=== PATIENT | female | born 1990 | race Caucasian/White ===

== ENCOUNTER → 2023-04-29 | Outpatient (CLI) | payer MEDICAID, SELFPAY | END | disposition home or self-care (01) | LOC: LABSPEC 15:03 | PROVIDERS: Referring Provider Registered Nurse; Visit Provider Registered Nurse | DX: Z34.90 Encounter for supervision of normal pregnancy, unspecified, unspecified trimester (principal) | CPT/HCPCS: 87086 ==

== ENCOUNTER → 2023-05-28 | Outpatient (CLI) | payer MEDICAID, SELFPAY ==
--- NOTE | 2023-05-28 09:56 | US_ITS ---
STUDY: SECOND AND THIRD TRIMESTER OBSTETRICAL ULTRASOUND REASON FOR EXAM: Female, 32 years old anatomy scan 34 WEEK 6 DAYS LMP: 09/26/2022 TECHNIQUE: Transabdominal TECHNICAL QUALITY: Adequate. PRIOR ULTRASOUND: None. FINDINGS: There is a single intrauterine fetus. The fetus is in a cephalic presentation. There is demonstrated cardiac activity with a heart rate of 145 bpm. There is a normal amniotic fluid volume. The largest amniotic fluid pocket measures 5.1 cm. The amniotic fluid index (MARGARET) is 14.8 cm. The placenta is anterior in location and is not low lying. There are Grade 1 placental changes. Suspect marginal or velamentous cord insertion on the placenta. The cervix measures 4.0 cm in length. The bilateral adnexal regions are normal. BIOMETRY: BPD: 8.4 cm: 34 weeks, 0 days HC: 30.8 cm: 34 weeks, 3 days AC: 31.7 cm: 35 weeks, 4 days FL: 6.5 cm: 33 weeks, 4 days CI: 79.02 FL/BPD: 77.29 FL/HC: 21.16 FL/AC: 20.60 HC/AC: 0.97 age by current US: 34 weeks, 2 days. CAM by current US: 07/07/2023. Estimated weight: 2543 grams, +/- 381 grams, 47 %. age by prior US: weeks, days. CAM by prior US: . Age by LMP: 34 weeks, 6 days. CAM by LMP: 07/03/2023. ANATOMY: Gender: Female Cranium: Normal lateral ventricles. Normal choroid plexus. Normal cerebellum. Normal cisterna magna. Normal face, nose and lips. Chest: Normal 4-chamber heart. Abdomen/Pelvis: Normal diaphragm. Normal stomach. Normal abdominal wall. Normal cord insertion. Normal 3 vessel cord. Normal kidneys. Normal bladder. Spine: Normal cervical spine. Normal thoracic spine. Normal lumbar spine. Normal sacrum. Extremities: Normal bilateral upper extremities. Normal bilateral lower extremities. US/OB Anatomy Scan IMPRESSION: 1. Living intrauterine of 34 weeks 2 days as described above. 2. Suspect marginal or velamentous cord insertion on the placenta. Maternal medicine consult may be useful. Electronically Signed: Omari Cook MD at 22:48 EST ,
== END | disposition home or self-care (01) ==
LOC: US 09:56
PROVIDERS: Referring Provider Registered Nurse; Visit Provider Registered Nurse
DX: Z34.90 Encounter for supervision of normal pregnancy, unspecified, unspecified trimester (principal)
CPT/HCPCS: 76805

== ENCOUNTER → 2023-06-07 | Outpatient (CLI) | payer MEDICAID, SELFPAY ==
[2023-06-07 11:28] LABS: Absolute Lymphocyte Count 1.68 X10^3/uL (0.83-4.51); Absolute Neutrophil Count 6.4 X10^3/uL (2.0-7.7); Basophil# 0.04 X10^3/uL; Basophil% 0.4 % (0-1); Eosinophils% 3.3 % (0-5); Hematocrit 35.8 % (37-47); Hemoglobin 12.1 g/dL (12.0-15.0); Lymphocyte # 1.68 X10^3/ul (0.83-4.51); Lymphocyte % 18.6 % (19-41); Mean Corp Hgb Conc 33.8 g/dL (32-36); Mean Corpuscular Hgb 30.4 pg (27.0-32.0); Mean Corpuscular Volume 89.9 fL (81-99); Mean Platelet Vol. 10.8 fl (6.2-12.0); Monocyte# 0.55 X10^3/uL; Monocyte% 6.1 % (0-10); NRBC Flagged by Analyzer 0 % (0-5); Platelet Count 217 K/mm3 (150-450); RBC Distribution Width SD 45.9 fl (35.1-43.9); Red Blood Count 3.98 M/mm3 (4.2-5.4)
[2023-06-07 11:34] LABS: Glucose Challenge Gest 1H 50g 120 mg/dL (70-140)
[2023-06-07 12:19] LABS: HIV - WCH Non-Reactive (Nonreactive); Hepatitis B Surface Antigen Non-Reactive (Nonreactive); Hepatitis C Antibody Non-Reactive (Nonreactive); Rubella IgG Reactive (Nonreactive); Syphilis Antibodies Non-reactive
== END | disposition home or self-care (01) ==
PROVIDERS: Referring Provider Registered Nurse; Visit Provider Registered Nurse
DX: Z34.90 Encounter for supervision of normal pregnancy, unspecified, unspecified trimester (principal)
CPT/HCPCS: 36415; 82950; 85025; 86703; 86762; 86780; 86803; 86850; 86900; 86901; 87340

== ENCOUNTER → 2023-06-11 | Outpatient (CLI) | payer MEDICAID, SELFPAY ==
[2023-06-11 14:32] LABS: Group B Strep DNA By PCR POSITIVE (Negative); Probe Check PASS
[2023-06-15 07:08] LABS: Chlamydia By Nucleic Acid AMP Negative (Negative); Gonococcus By Nucleic Acid AMP Negative (Negative)
== END | disposition home or self-care (01) ==
LOC: LABSPEC 12:28
PROVIDERS: Referring Provider Registered Nurse; Visit Provider Registered Nurse
DX: Z34.90 Encounter for supervision of normal pregnancy, unspecified, unspecified trimester (principal)
CPT/HCPCS: 87491; 87591; 87653

== ENCOUNTER → 2023-07-01 | Outpatient (CLI) | payer MEDICAID, SELFPAY ==
--- NOTE | 2023-07-01 16:38 | US_ITS ---
STUDY: SECOND AND THIRD TRIMESTER OBSTETRICAL ULTRASOUND - LIMITED REASON FOR EXAM: Female, 32 years old Uterine size date discrepancy LMP: 09/26/2022. PRIOR ULTRASOUND: None. TECHNIQUE: Transabdominal TECHNICAL QUALITY: Adequate. FINDINGS: There is a single intrauterine fetus. The fetus is in a cephalic presentation. There is demonstrated cardiac activity with a heart rate of 132 bpm. There is a normal amniotic fluid volume. The largest amniotic fluid pocket measures 3.8 x 3.5 cm. The amniotic fluid index (MARGARET) is 13.95 cm. The placenta is fundal and anterior with no evidence of previa. There are Grade 3 placental changes. The cervix is obscured. BIOMETRY: BPD: 8.7 cm: 35 weeks, 2 days HC: 32.51 cm: 36 weeks, 6 days AC: 34.82 cm: 38 weeks, 5 days FL: 7.17 cm: 36 weeks, 5 days Age by LMP: 39 weeks, 5 days. CAM by LMP: 07/03/2023. CAM by prior US: 07/07/2023. age by current US: 36 weeks, 0 days. CAM by current US: 07/29/2023. Estimated weight: 3290 grams, +/- 494 grams, 28 percentile. US/OB Limited With Biometrics IMPRESSION: Single intrauterine with ultrasound age of 36 weeks and 0 days and estimated date of delivery of 07/29/2023. Vertex presentation. Fundal placenta with no previa. Normal amniotic fluid. Normal cardiac activity. Electronically Signed: Brissa Matt MD at 18:39 EST ,
== END | disposition home or self-care (01) ==
PROVIDERS: Referring Provider Obstetrics & Gynecology; Visit Provider Obstetrics & Gynecology
DX: O26.849 Uterine size-date discrepancy, unspecified trimester (principal); Z3A.00 Weeks of gestation of pregnancy not specified
CPT/HCPCS: 76816

== ENCOUNTER 2023-07-06 17:45 | Inpatient (IN) | payer MEDICAID, SELFPAY ==
[2023-07-06 18:26] VITALS: TEMP 37.3
[2023-07-06 18:27] VITALS: BP 115/72; PULSE 78
[2023-07-06 18:37] VITALS: BMI 30.4
[2023-07-06] MEDS: Lactated Ringers 1,000 ML 50 ML IV (18:45)
[2023-07-06 18:59] LABS: Absolute Lymphocyte Count 2.11 X10^3/uL (0.83-4.51); Absolute Neutrophil Count 6.7 X10^3/uL (2.0-7.7); Basophil# 0.03 X10^3/uL; Basophil% 0.3 % (0-1); Eosinophil# 0.43 X10^3/uL; Eosinophils% 4.4 % (0-5); Hematocrit 35.8 % (37-47); Lymphocyte # 2.11 X10^3/ul (0.83-4.51); Lymphocyte % 21.4 % (19-41); Mean Corp Hgb Conc 33.5 g/dL (32-36); Mean Corpuscular Hgb 29.7 pg (27.0-32.0); Mean Corpuscular Volume 88.6 fL (81-99); Mean Platelet Vol. 11.9 fl (6.2-12.0); Monocyte% 6.1 % (0-10); NRBC Flagged by Analyzer 0 % (0-5); Neutrophil # 6.66 X10^3/uL (2.7-7.7); Neutrophil % 67.3 % (47-70); Platelet Count 238 K/mm3 (150-450); RBC Distribution Width CV 13.7 % (11.6-14.6); RBC Distribution Width SD 44.7 fl (35.1-43.9); Red Blood Count 4.04 M/mm3 (4.2-5.4); White Blood Count 9.9 K/mm3 (4.4-11.0)
[2023-07-06 19:00] VITALS: PULSE 80; O2SAT 97
[2023-07-06 19:34] LABS: Syphilis Antibodies Non-reactive
[2023-07-06] MEDS: LACTATED RINGERS 500 ML 999 ML IV (19:35)
[2023-07-06 19:48] VITALS: PULSE 83; O2SAT 97
[2023-07-06] MEDS: 0.9% Normal Saline Single 100 ML IV.SOLN. INTRA-UTER (20:37)
--- NOTE | 2023-07-06 21:00 | HP.PCM.OB_ITS ---
HPI - General General Date of Admission: 07/06/23 Date of Service: 07/06/23 HPI Narrative SUSSY SHANNON, is a 32 F 40.3 weeks who presents to L&D for induction of labor. She had decreased movement over the last 2 days and has a possible velamentous cord insertion. Maternal Data Information CAM Calculator Estimated Delivery Date Method Current WG Current Estimate 07/03/23 LMP (Certain) 40w 3d Final CAM: 07/03/23 Final CAM Source: US >20 weeks Gestational age: 40.3 weeks PFSH [facility] Medical History (Updated 07/06/23 @ 21:07 by Lizeth Rebolledo CNM) Back pain HPV (human papilloma virus) infection Migraine headache Home Medications magnesium 200 mg tablet 400 mg PO DAILY cramps 07/06/23 [History Last Taken 07/06/23] milk thistle seed ox-cfquqscmhe-njndfxxwv-turmeri 250 mg-250 mg tablet (Liver Complex) 1 tab PO DAILY anemia 07/06/23 [History Last Taken 07/06/23] omega 3 350 mg-dha 235 mg-epa 90 mg-fish oil 597 mg capsule,delay rel ([place]-3) 2 cap PO DAILY 07/06/23 [History Last Taken 07/06/23] vit no.95-ferrous fumarate 28 mg-folic acid 800 mcg tablet () 1 tab PO DAILY 07/06/23 [History Last Taken 07/06/23] Allergy/AdvReac Type Severity Reaction Status Date / Time No Known Allergies Allergy Verified 07/06/23 18:32 Social History adopted: No number of children: 1 Smoking Status: Former smoker alcohol intake: never what type of physical activity do you participate in: walking frequency: 3-4 times per week additional social history: boyfriend - Sandra Ahumada History 2 Elective abortions Hx Para 1 Spontaneous abortions Hx # Term Pregnancies Ectopic pregnancies Hx # Pregnancies Multiple births # of living children Past Pregnancies Del. Date Name GA/Weeks Outcome Route Bth Weight Infant Gen Labor Lgth Anesthesia Del Locatn Provider FOB 08/22/16 Keila 40 live - full term 7lb 9oz Male 13 epidural osu ck garcía Delivery Date: 08/22/16 Last Updated by: Ana Kemp, RAFAEL had hypotension with epidural. terb, pitocin, Visit Details Expected Delivery Route/Plan Labor Preferences- CB/BF classes: [] labor support person: Sandra, labor intervention preferences:low interventions pain management options preferred: no epidural, minimal hands on cut cord/dad catch: : PP control planned: discussed possible routes of delivery and associated risks: [] special requests: [] Plans Covid status: [] Flu vaccine: declines Tdap vaccine: declines Rhogam: [] LARC form signed: completed Problem list reviewed and updated with the most current plan of care details and appropriate orders placed. Relevant counseling for the gestational age provided. Continue routine care and follow up unless otherwise noted in visit notes/problem list details OB Flowsheet Initial Weight: Not Recorded Date -?-?-?-?-?-?-?-?-?-?-?-?- EGA Weight BP Urine Prot -?-?-?-?-?-?-?-?-?-?-?-?- Glucose FHR FuHt Pres Dilation -?-?-?-?-?-?-?-?-?-?-?-?- Effaced St Visit Note 04/29/23 -?-?-?-?-?-?-?-?-?-?-?-?- 30w 5d 174 lb 2 oz 103/63 Nega tive -?-?-?-?-?-?-?-?-?-?-?-?- Negative 140 30 -?-?-?-?-?-?-?-?-?-?-?-?- LC- transfer of care from [facility] at 30 weeks, now seeking hospital . declines nipt, tdap, flu. larc complete. 28 and nob labs ordered. will use fresh test. had limited anatomy in [facility], will complete formal. LC- transfer of care from [facility] customer liaison at 30 weeks, now seeking hospital . declines nipt, tdap, flu. larc complete. 28 and nob labs ordered. will use fresh test. had limited anatomy in community, will complete formal. gc/ct obtained today. pap at . 05/13/23 -?-?-?-?-?-?-?-?-?-?-?-?- 32w 5d 174 lb 4 oz 110/74 Trac e -?-?-?-?-?-?-?-?-?-?-?-?- Negative 150 32 -?-?-?-?-?-?-?-?-?-?-?-?- LC- no vb/ctx/lo f. good fm. to obtain labs tomorrow. no concerns today. 05/28/23 -?-?-?-?-?-?-?-?-?-?-?-?- 34w 6d 177 lb 124/80 Negative -?-?-?-?-?-?-?-?-?-?-?-?- Negative 148 34 -?-?-?-?-?-?-?-?-?-?-?-?- LC- no vb/ctx/lo f. good fm. trying to obtain nob labs. having increased stressors. ultrasound obtained today. 06/11/23 -?-?-?-?-?-?-?-?-?-?-?-?- 36w 6d 177 lb Negative -?-?-?-?-?-?-?-?-?-?-?-?- Negative 140 35.5 36 0 -?-?-?-?-?-?-?-?-?-?-?-?- 10 -3 LC- no vb/ ctx/lof. good fm. nob lab neg. gbs obtained. recollected gc/ct. enc to meet all providers. mfm referral to r/o velamentous cord. LC- no vb/ctx/lof. good fm. nob lab neg. gbs obtained. recollected gc/ct. enc to meet all providers. 40 week delivery d/t potential velamentous cord per SM. 06/17/23 -?-?-?-?-?-?-?-?-?-?-?-?- 37w 5d 180 lb 120/77 Negative -?-?-?-?-?-?-?-?-?-?-?-?- Negative 140 37 Cephalic -?-?-?-?-?-?-?-?-?-?-?-?- JV- reviewed the ultrasound and agree does not need MFM consult. THe placenta is not low lying but may be velamentous. wants low intervention delivery if possible. works at the [employer]. declines pelvic exam today 06/24/23 -?-?-?-?-?-?-?-?-?-?-?-?- 38w 5d 180 lb 6 oz 118/75 Nega tive -?-?-?-?-?-?-?-?-?-?-?-?- Negative 125 34 Cephalic -?-?-?-?-?-?-?-?-?-?-?-?- SM- some decreas ed movement, no vb lof no regular ctx feels more pressure. discussed growth US, will check milvia now- SM- some decreased mov ement, no vb lof no regular ctx feels more pressure. discussed growth US, will check milvia now- 10.8 cm, growth US ordered for early next week 06/30/23 -?-?-?-?-?-?--?-?-?-?-?-?- 39w 4d 180 lb 4 oz 106/74 Nega tive -?-?-?-?-?-?-?-?-?-?-?-?- Negative 125 35 Cephalic 0 -?-?-?-?-?-?-?-?-?-?-?-?- 20 -3 LC- no vb/ ctx/lof. good fm. growth scan ordered and arranged for tomorrow at 4:30pm. IOL scheduled for Wednesday pm. 07/06/23 -?-?-?-?-?-?-?-?-?-?-?-?- 40w 3d 182 lb 6 oz 102/63 -?-?-?-?-?-?-?-?-?-?-?-?- 130 1.5 -?-?-?-?-?-?-?-?-?-?-?-?- 70 -1 SM- no vb lof, didn't come for IOL the other day due to contractions and thinking she was going into labor. she didn't feel movement yesterday and today it is decresaed, NST reactive ands he agrees to IOL now NST FHR Rate Baby A Baseline: 130 Variability:: Moderate Accelerations:: 15 x 15 Decelerations:: None NST Reactive:: Yes FHR Category:: Category I Uterine Activity:: 2-5 ROS Constitutional Constitutional: Denies change in weight, fatigue, fever(s), headache(s), poor appetite or weakness Eyes Eyes: Denies blurry vision, change in vision, floaters, seeing flashes or spots in vision ENT HEENT: Denies dizziness, headache(s), loss taste/smell or sore throat Cardiovascular Cardiovascular: Denies chest pain, dizziness, dyspnea, irregular heart rhythm, lightheadedness, palpitations or rapid heart rate Respiratory/Chest Respiratory/Chest: Denies change in mental status, chest tightness, cough, dyspnea or breast pain Gastrointestinal Gastrointestinal: Denies anorexia, chewing difficulty, constipation, diarrhea or weight changes Genitourinary Genitourinary: Denies difficulty urinating, dysuria, flank pain, genital pain, urinary frequency or urinary urgency Musculoskeletal Musculoskeletal: Denies back pain, difficulty walking, extremity pain, joint pain, muscle cramps or muscle weakness Integumentary Integumentary: Denies lesions or unusual bruising Neurologic Neurologic: Denies abnormal movements, abnormal speech, dizziness, numbness, seizure-like activity, syncope or weakness Psychiatric Psychiatric: Denies behavioral changes, change in appetite, confusion, depression, homicidal ideation, suicidal ideation or suicidal thoughts Endocrine Endocrinology: Denies excessive sweating, polydipsia or polyuria Hematologic/Lymphatic Hematologic/Lymphatic: Denies anemia Allergic/Immunologic Allergic/Immunologic: Denies itchy eyes, lip swelling, throat swelling, tongue swelling or wheezing Vital Signs Vital Signs Vital Signs: 07/06/23 18:27 07/06/23 18:27 07/06/23 18:26 Temperature Temperature Source Temporal Pulse Rate 78 Blood Pressure 115/72 BP Systolic 115 BP Diastolic 72 Pulse Ox 07/06/23 18:26 07/06/23 19:00 07/06/23 19:00 Temperature 99.2 F H Temperature Source Pulse Rate 80 Blood Pressure BP Systolic BP Diastolic Pulse Ox 97 07/06/23 19:48 07/06/23 19:48 Temperature Temperature Source Pulse Rate 83 Blood Pressure BP Systolic BP Diastolic Pulse Ox 97 Weight Weight: 183 lb Body Mass Index (BMI) 30.4 Physical Exam Const alert, oriented x3 and no apparent distress General Appearance: cooperative Orientation / Consciousness: awake HEENT normocephalic Neck full ROM Lymph Lymphatic: no lymphadenopathy noted Chest inspection of chest normal Resp normal respiratory effort and normal air movement Effort and Inspection: able to speak in complete sentences and symmetric chest movement GI soft to palpation and non-tender Inspection: gravid Palpation: soft; Negative for tender external exam normal Manual OB Exam: estimated gestational size appropriate, presentation cephalic, dilated 2, effaced 70 and station -2 Back/Spine normal to inspection Extremity normal to inspection and full ROM Skin no rashes or lesions noted Psych mental status grossly normal Appearance: grossly normal Speech: normal speech Labs Labs Labs: Blood Type O POSITIVE Antibody Screen NEGATIVE Hct 35.8 % (37-47) L Hgb 12.0 g/dL (12.0-15.0) Obstetrics Ultrasound Syphilis Total Ab Non-reactive Rubella IgG Antibody Reactive (Nonreactive) Hep Bs Antigen Non-Reactive (Nonreactive) Hepatitis C Antibody Non-Reactive (Nonreactive) Chlamydia DNA (AFSANEH) Negative (Negative) N.gonorrhoeae DNA (AFSANEH) Negative (Negative) HIV 1&2 Antibody Non-Reactive (Nonreactive) Glucose 1 Hr 50 gm 120 mg/dL (70-140) Group B Strep DNA POSITIVE (Negative) H Assessment & Plan (1) Decreased movements in third trimester: COMMENT: NST done. recommend IOL pit and fb (2) Positive GBS test: COMMENT: recommend treatment in labor. pt planning on refusing treatment. risk reviewed. (3) Supervision of high risk due to social problems: COMMENT: PRR CAM 07/03/2023 girl PC: keila. bf:Sandra(no longer involved) (4) Umbilical cord complication: COMMENT: possible marginal cord or velamentous cord insertion per [facility]. normal growth. Discussed with -does not need FU US by MFM. consider delivery by 40 weeks, repeat growth US 28% (5) : QUALIFIERS: Weeks of gestation: 40 weeks Qualified Code(s): Z3A.40 - 40 weeks gestation of COMMENT: declines nipt,. normal anatomy except for marginal vs velamentous cord insertion. (6) Encounter for induction of labor: COMMENT: johnson bulb and pitocin PLAN: Patient presents IOL, plan management for with johnson bulb/pitocin/AROM. Plan for johnson bulb over night and to start pitocin at 6am if needed. Pain management: plans no epidural. GBS positive. Management of any complications: umbilical cord complication I have reviewed the [facility] and made any clinically relevant updates. Dr Garza aware of and agrees with above assessment and plan. Charges/Coding Multi Select Codes Urinary/Genital Urinary/Genital CPT Codes: No Charge
[2023-07-06 22:52] VITALS: PULSE 82; O2SAT 97
[2023-07-06 22:53] VITALS: BP 139/72; PULSE 106; TEMP 36.8
[2023-07-07] VITALS (21 sets, daily range): BP systolic 89–130; BP diastolic 54–79; PULSE 75–89; RESP 16–18; TEMP 36.3–37.3; O2SAT 96–98
[2023-07-07] MEDS: Penicillin G Pot 5,000,000 UNITS in 0.9% Normal Saline (100mL MB+) 100 ML 150 UNITS IV (00:32)
[2023-07-07] MEDS: Penicillin G 3,000,000 Units 50 ML 100 UNITS IV (04:50)
--- NOTE | 2023-07-07 05:14 | PN_ITS ---
Progress Note Coping well with contractions current tracing: FHT: 130 Moderate variability reactive no decelerations category I tracing [place]: 3-4 minute Contractions Membranes:AROM at 0520 for clear fluid SVE:7/80/-1 A/P: Continue with position changes start pitocin per protocol if no cervical change in 3 hours Epidural per anesthesia if desired PCN for GBS prophylaxis Anticipate Dr Garza aware of above assessment and agrees with plan of care Assessment & Plan Assessment/Plan (1) Encounter for induction of labor: (2) Decreased movements in third trimester: (3) Positive GBS test: (4) Supervision of high risk due to social problems: (5) Umbilical cord complication: (6) : QUALIFIERS: Weeks of gestation: 40 weeks Qualified Code(s): Z3A.40 - 40 weeks gestation of Multi Select Codes Urinary/Genital Urinary/Genital CPT Codes: No Charge
--- NOTE | 2023-07-07 07:19 | PN_ITS ---
Progress Note pt is very uncomfortable standing at bedside yelling that she needs to have a bowel movement and agrees to move to bed to be examined. current tracing: FHT: Moderate variability reactive intermittent variable decelerations, currently category I tracing [place]: q 1-3 min Contractions with some coupling patterns. cx: 6/80/0 to +1 A/P: 40 weeks - IOL for persistent decreased movement. wants low intervention offered nitrous, warm shower, and epidural. pt wants to try a warm shower continue expectant management.
[2023-07-07] MEDS: Oxytocin 10 UNITS/ML Vial IM (08:16)
--- NOTE | 2023-07-07 08:25 | OP.PCM_ITS ---
Assessment & Plan (1) Encounter for induction of labor: COMMENT: johnson bulb and pitocin (2) Decreased movements in third trimester: COMMENT: NST done. recommend IOL pit and fb (3) Positive GBS test: COMMENT: recommend treatment in labor. pt planning on refusing treatment. risk reviewed. (4) Supervision of high risk due to social problems: COMMENT: PRR CAM 07/03/2023 girl PC: keila. bf:Sandra(no longer involved) (5) Umbilical cord complication: COMMENT: possible marginal cord or velamentous cord insertion per WC. normal growth. Discussed with SM-does not need FU US by MFM. consider delivery by 40 weeks, repeat growth US 28% (6) : QUALIFIERS: Weeks of gestation: 40 weeks Qualified Code(s): Z3A.40 - 40 weeks gestation of COMMENT: declines nipt,. normal anatomy except for marginal vs velamentous cord insertion. Maternal Data Information CAM Calculator Estimated Delivery Date Method Current WG Current Estimate 07/03/23 LMP (Certain) 40w 4d Final CAM: 07/03/23 Final CAM Source: LMP Gestational age: 40 weeks 6 days Vaginal Delivery Maternal Presentation Maternal Presentation: Medically Indicated Induction Type of Induction: Johnson Bulb and Amniotomy Operative Information Date of Procedure: 07/07/23 Pre-Operative Diagnosis: 32 y/o @ 40 weeks 6 days, IOL Post-Operative Diagnosis: 32 y/o @ 40 weeks 6 days, IOL Surgery / Procedure Performed: Spontaneous Vaginal Delivery Type of Anesthesia: None Estimated Blood Loss: 100cc Time of Delivery: 08:11 Findings Description of Procedure: Patient began pushing and delivered the head in the PHOEBE presentation while in hands and knees position. The head was delivered atraumatically. The anterior and posterior shoulders delivered without complication followed by the rest of the and the infant. Delayed cord clamping was employed for approximately 30-60 seconds. Cord was clamped and cut and gentle traction was applied to the cord and the placenta delivered spontaneously immediately following it was noted to be intact with three-vessel cord. The perineum and vagina were inspected and noted to have no laceration. EBL was 100 cc. Patient and tolerated delivery well. Presentation: Vertex Amniotic Membrane Rupture Type: Artificial Time of Membrane Rupture: 0530 Amniotic Fluid Description: Clear Placental Delivery Description: Spontaneous Placenta Disposition: [facility] Cord Vessel Description: 3 Vessels Cord Entanglement: None Infant A Gender: Female (1 minute): 8 (5 minute): 9 Delayed Cord Clamping: Yes Post Vaginal Delivery Medications Given After Delivery: IM Pitocin Episiotomy Description: None Laceration: None Complication Complications: None Multi Select Codes Urinary/Genital Urinary/Genital CPT Codes: 88085 Vaginal Delivery+ PP Care([facility])
--- NOTE | 2023-07-07 08:32 | DCINST_ITS ---
Discharge Instructions Diet Discharge Diet: No restrictions Activity Discharge Activity: Return to Normal Activity, May Not Drive (while taking narcotic pain medications.) and May Shower May resume sexual activity in: 4-6 weeks Dressing / Incision Call your doctor if your incision/area has: Continuous Slow Oozing, Sudden Increased Bleeding, Increased Pain/ Swelling, Increased Redness and Foul Smelling Discharge Follow Up Care Please Follow Up With: Nicole Ma, DO When: Call [phone] to make an appointment with your doctor in 6 weeks. If you had elevated blood pressure or 4th degree laceration, you will need to be seen in 2 weeks. Test Results: Test results from this visit will be discussed in further detail at your follow- up appointment, if applicable. Discharge Plan Admission Admit Date/Time: 07/06/23 17:45 Attending Provider: Nicole Ma Primary Care Provider: Care Physician,No Primary Discharge Orders/Prescriptions Prescriptions: No Action PNV cmb#95-ferrous fumarate-FA [] 28 mg iron- 800 mcg tablet 1 tab PO DAILY [place]-3 350 mg-235 mg- 90 mg-597 mg capsule,delayed release(DR/EC) 2 cap PO DAILY magnesium 200 mg tablet 400 mg PO DAILY Liver Complex 250-250 mg tablet 1 tab PO DAILY Referrals / Follow Up: Care Physician,No Primary [Primary Care Provider] -
--- NOTE | 2023-07-07 16:16 | CASEMGMT ---
Social Work Assessment Labor and Delivery Unit Patient Address:[address] [place] [address]. [place] [address] Phone number: [phone] Date of Referral: 07/07/23 Time of Referral:? [id number] Referred By: Nicole Duran Date of Intervention: ??07/07/23 Time of Intervention:?1549 Reason for Referral:? FOB wanted MOB to have an . Decrease involvement in care Sw completed chart review and acknowledges social work consult entered. Sw presented to bedside and introduced self to mother of baby (MOB- Marlys) and explained sw role during hospitalization. Sw completed psychosocial assessment and provided list of resources for MOB. History obtained from: medical records, MOB Household composition: Currently residing in the family home is ANIBAL, her almost 7 year old son (Nicolás) and now baby. MOB states that sometimes father of baby (FOB- Mikey Ahumada) stays with them too. MOB denies any housing concerns at this time. Patient's parent/guardian status:? ?MOB states that she and NATE have a number of mutual friends and have known each other for a while. MOB states that they started talking when NATE had a christy set up at the [employer] in March 2022. MOB states that they dated for a while, and then decided to have a baby. MOB states that they tried for one month when she became . MOB states that when she found out she was , she also discovered that NATE was cheating on her. - MOB states that when she was about 12 weeks along, FOB told her that a surprise was going to get delivered to the house. The next day, she signed for [place]. ANIBAL asked FOHansel if he wanted her to wait to open it with him and he said yes. The next day he took the package to his work to wrap it . ANIBAL states that a few days later they went to see a movie together, and before they went to the movies he got them each a bottled smoothie from the gas station. When he handed hers to her the cap seal was broken, and he told her that he opened it to taste it before giving it to her. MOB states that she drank about half of the bottle. ANIBAL states that in the middle of the night she woke up with a lot of cramping and was bleeding. By the time morning came her bleeding had stopped and she was no longer concerned for loss of . - ANIBAL then found a prescription for pills in her name in NATE's wallet. MOB confronted him for purchasing them, but he denied. - ANIBAL stated that she filed a report with the police dept. However they were not able to charge FOHansel due to lack of evidence and lack of confession. ANIBAL stated that the police wanted her to get a confession from him on tape. - MOB states that they broke up for 2-3 months last summer when all of this was going on. And during that time they agreed to try and make things work for the sake of the baby. - MOB stated that at this time they are not 100%, still working on establishing trust with him, but are working to co-parent together. Medical History: ?ANIBAL is 32 year old female who is 2, para 1- now 2 following labor and delivery of . ANIBAL received routine care during with [facility]. ANIBAL delivered baby on 07/07/23 via vaginal delivery at 40 weeks gestation. Baby girl, named Preeti Gunter, was born weighing 7.8lb and her apgars were 8 and 9 at one and five minutes of life respectfully. ANIBAL states that she does not have a heel breaster chosen because she does not have intentions of baby being followed by anyone. Educational Status:? ANIBAL graduated high school and obtained some college courses, did not get a degree. Financial Status: ANIBAL was working at [employer], is now on maternity leave. She states that when she returns to work it will not be four days a week like she had previously been working. Supplies:?? ANIBAL states that she has obtained all supplies for baby, including: car seat, safe sleep space, clothes, diapers, wipes and a breast pump Childcare/Caregiver(s):? When MOB needs assistance with childcare her mom helps her. Transportation:?? No barriers Programs/Agencies Involved: ???Medicaid insurance (Matt) and is familiar with [facility], but not connected at this time. Denies counseling supports/ services. Information provided. Children Services/Legal Issues:???No history of involvement. Behavioral Health Issues: ??Mental Health History:? ANIBAL denies mental health diagnoses for herself and FOB. MOB states that she may have experiences some baby blues following the of her first baby, and is aware of signs and symptoms to look out for. ?? Substance Use History: MOB denies substance use prior to and during . ?? Family History:Not discussed at this time. ?? Drug Screens: ??not discussed at this time. Family/Social Stressors:? Current stressors include above mentioned situation with FOB. Support Systems: MOB states that although they are not 100% at this time, FOB is a support for her. MOB also states that her mother is a big support for her and some of her friends. Depression/Shaken Baby/Safe Sleeping:? Sw educated MOB on signs and symptoms of baby blues and depression/ anxiety. Sw explained that MOB is in a different situation with a partner following this delivery, and she may be more susceptible to experiencing symptoms. MOB expressed understanding. Sw educated MOB on shaken baby prevention and ABCs of safe sleep. ASSESSMENT:? MOB and baby admitted following labor and delivery. Sw started psychosocial assessment, however follow up questions are warranted regarding current situation with FOB and any safety concerns that MOB may have. MOB opened up and talked with Sw regarding concerns. MOB observed providing appropriate and loving hands on care of , doing skin to skin during sw assessment. MOB was receptive to resources provided by sw. PLAN:MOB and baby to be discharged when medically ready. Sw follow up with MOB to assess for any additional safety concerns she may have with FOB and baby. Sw also assess and support MOB in obtaining a heel breaster for baby. 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
[2023-07-08 00:23] VITALS: BP 119/69; PULSE 87; RESP 18
[2023-07-08 04:58] VITALS: BP 108/60; PULSE 75; RESP 18
[2023-07-08] MEDS: Ibuprofen 600 MG Tablet PO (05:00)
--- NOTE | 2023-07-08 07:47 | PCM.PN.OB ---
Subjective Subjective Patient doing well without complaints. Tolerating PO. Ambulating and voiding without difficulty. Feeding well. Denies chest pain, shortness of breath, calf pain/swelling, fevers, chills, lightheadedness. Objective Data Objective Data Vital Signs: Vital Signs Temp Pulse Resp BP Pulse Ox O2 Del Method 99.0 F 75 18 108/60 98 Room Air 07/07/23 16:30 07/08/23 04:58 07/08/23 04:58 07/08/23 04:58 07/07/23 10:14 07/08/23 04:58 Oxygen Delivery Method Room Air Weight: 183 lb Body Mass Index (BMI) 30.4 Intake & Output: Intake and Output for Last 24 Hours 07/06/23 07/07/23 07/08/23 23:59 23:59 23:59 Intake Total 1217.5 / 1217.5 Output Total 400 / 400 1800 / 1800 Balance -400 / -400 -582.5 / -582.5 Lab / Micro Data 07/06/23 18:40 Physical Exam Const alert and oriented x3 HEENT normocephalic Eyes PERRL Neck full ROM Resp normal respiratory effort GI soft to palpation GI Narrative: FF below U Assessment & Plan (1) Spontaneous vaginal delivery: COMMENT: 07/07/23 Preeti HAMMOND PLAN: Plan s/p PPD # 1 1. routine post delivery care 2. breast feeding- support given 3. rh positive 4. rubella immune 5. home today
--- NOTE | 2023-07-08 07:49 | DCINST_ITS ---
Discharge Instructions Diet Discharge Diet: No restrictions Activity May resume sexual activity in: 4-6 weeks Dressing / Incision Call your doctor if your incision/area has: Continuous Slow Oozing, Sudden Increased Bleeding, Increased Pain/ Swelling, Increased Redness and Foul Smelling Discharge Follow Up Care Please Follow Up With: Nicole Ma DO Test Results: Test results from this visit will be discussed in further detail at your follow- up appointment, if applicable. Discharge Plan Admission Admit Date/Time: 07/06/23 17:45 Attending Provider: Nicole Ma Primary Care Provider: Care Physician,Gayathri Primary Discharge Orders/Prescriptions Prescriptions: No Action PNV cmb#95-ferrous fumarate-FA [] 28 mg iron- 800 mcg tablet 1 tab PO DAILY [place]-3 350 mg-235 mg- 90 mg-597 mg capsule,delayed release(DR/EC) 2 cap PO DAILY magnesium 200 mg tablet 400 mg PO DAILY Liver Complex 250-250 mg tablet 1 tab PO DAILY Referrals / Follow Up: Care Physician,No Primary [Primary Care Provider] - Disposition Disposition (needs filled in before D/C Order can be placed): Home, Self Care
[2023-07-08 08:35] VITALS: BP 102/64; PULSE 77; RESP 16; TEMP 36.6
[2023-07-08 08:36] VITALS: BP 102/64; PULSE 77
--- NOTE | 2023-07-08 09:37 | CASEMGMT ---
Addendum entered by Ashlee Phipps 07/08/23 10:19: Social Work SW called [facility], spoke w/Viri. Information given regarding concerns for child and family situation. They will decide in next 24 hours if they are going to open a case. RN aware. MOB okay to discharge home today. NEETA Bernard Original Note: Social Work SW checked in w/RN, MOB did agree to an appointment for baby with a form setter steel pan forms, Dr. Musa. SW met w/MOB in room to follow up from yesterday. SW spoke w/her initially about form setter steel pan forms. MOB confirms agreed to baby seeing Dr. Musa. SW asked about the 7 year old(Nicolás). She states he has never had to go to the doctor. She takes him to urgent care if anything is needed. She states she does not like pediatricians as they have a vaccine schedule that she does not like to follow. SW inquired if he got his vaccines, just later. She states no, he does not need them. SW then spoke w/MOB about the situation w/the baby's father. She states they were together about 7 months before everything happened. She states she did not see him for a few months, and then he started coming around a few months ago. She wants him involved in the baby's life but is not sure about him being involved w/her life. She states her 7 year old's father is in [place] and is not involved. She did not want to have another baby without the father involved, does not want to keep him from her. She states when he found out that he was having a girl, he softened. SW inquired how he's seemed when visiting, she states he is in awe. NATE does have two other children, a 12 and 11 year old, both boys, who he sees every other weekend. She states he was here yesterday and today, but had to go to work. She states he is concerned as he is supporting the other two children and now has this baby. LEANNE inquired w/MOB if there are any safety concerns. She states no. LEANNE specifically asked about any safety concerns for her, baby or Nicolás she states no. LEANNE inquired how the relationship is between Nicolás and NATE is, she states it is fine. LEANNE asked a couple of times about safety, MOB has no safety concerns at this time. She states she actually gets angry and yells at times, FOB does not. LEANNE asked MOB how she is feeling about this baby, she states she is happy about the baby. She states her son Nicolás wanted a boy and made that clear from the start. He did help to name the baby, whose name is Preeti. They plan to call her Keysha for short. LEANNE asked MOB about support system. She states has a village of support. Her mother is very supportive, MOB states that Nicolás is with her mom at present while she is here in the hospital. LEANNE did ask mom about therapy. She states she is not in therapy, but is thinking about it as states maybe it would be helpful to talk through everything. She does have a list of counselors from the SW yesterday. LEANNE will be calling Children's Services due to situation w/FOB. NEETA Bernard
--- NOTE | 2023-07-27 08:17 | CASEMGMT ---
Addendum entered by Ashlee Phipps 09/04/23 06:52: Social Work SW received a letter dated 08/24/23 from [facility] stating the assessment/investigation is complete and there is not a need for ongoing child protective services. NEETA Bernard Original Note: Social Work SW received a letter dated 07/13/2023 from [facility], the referral was accepted for assessment/investigation. NEETA Bernard
== END 2023-07-08 13:00 | disposition home or self-care (01) | DRG 560 ==
PROVIDERS: Advanced Practice Midwife; Admitting Provider Obstetrics & Gynecology; Referring Provider Obstetrics & Gynecology; Visit Provider Obstetrics & Gynecology
DX: O48.0 Post-term pregnancy (principal); Z37.0 Single live birth; B95.1 Streptococcus, group B, as the cause of diseases classified elsewhere; O36.8130 Decreased fetal movements, third trimester, not applicable or unspecified; O99.824 Streptococcus B carrier state complicating childbirth; Z3A.40 40 weeks gestation of pregnancy; Z87.891 Personal history of nicotine dependence
CPT/HCPCS: 59025; 59050; 85025; 86780; 86850; 86900; 86901; 99221; J7120; G0378

== ENCOUNTER → 2023-08-20 | Outpatient (CLI) | payer MEDICAID, SELFPAY ==
[2023-08-25 16:10] LABS: HPV APTIMA, High Risk Negative (Negative)
== END | disposition home or self-care (01) ==
LOC: LABSPEC 16:22
PROVIDERS: Referring Provider Registered Nurse; Visit Provider Registered Nurse
DX: Z12.4 Encounter for screening for malignant neoplasm of cervix (principal)
CPT/HCPCS: 87624; 88175; G0145